=== PATIENT | female | born 1975 | race Caucasian/White ===

== ENCOUNTER 2020-06-21 20:01 | Emergency (ER) | payer BC, OTHER ==
[2020-06-21] MEDS ORDERED: METOCLOPRAMIDE HCL ORAL SOLN 10 MG/10 ML UDCUP PO ONE (20:15)
[2020-06-21] MEDS ORDERED: LIDOCAINE 2% VISCOUS SOLN 15 ML UDCUP PO ONE (20:15)
[2020-06-21] MEDS ORDERED: MAG HYDROX/AL HYDROX/SIMETH SUSP 30 ML UDCUP PO ONE (20:15)
--- NOTE | 2020-06-21 20:23 | ER Document Report ---
ED Medical Screen (RME) - General Chief Complaint: Abdominal Pain Stated Complaint: SEVERE ABDOMINAL PAIN Time Seen by Provider: 06/21/20 20:09 - HPI Notes: 06/21/20 20:17 44-year-old female with a history of hypertension, asthma, hypothyroidism, anxiety presents to the emergency room for right upper quadrant, epigastric and some left upper quadrant abdominal pain that started 24 hours ago. Reports nausea and vomiting, denies any chest pain or shortness of breath. Patient reports she still has her gallbladder. Patient denies eating anything in the last 24 hours, she cannot confirm or deny if it is worse with food. Reports RUQ pain does intermittently radiate to her back. reports her last bowel movement was this afternoon, denies melena. She did go to an urgent care they did a KUB and stated she had some stool but told her she is still having pain to go to the emergency room. Patient's last menstrual cycle was 05/05/2020, she does have regular periods, did they did confirm that she was not today but we will recheck as well. I have greeted and performed a rapid initial assessment of this patient. A comprehensive ED assessment and evaluation of the patient, analysis of test results and completion of the medical decision making process will be conducted by additional ED providers. PHYSICAL EXAMINATION: GENERAL: Well-appearing, well-nourished and in no acute distress. HEAD: Atraumatic, normocephalic. EYES: Pupils equal round extraocular movements intact, conjunctiva are normal. NECK: Normal range of motion CV: s1, s2 regular LUNGS: No respiratory distress ABD: RUQ abd pain, epigastric abd pain The patient was evaluated during a global COVID-19 pandemic and that diagnosis was suspected/considered upon their initial presentation. Their evaluation, treatment and testing was consistent with current guidelines for patients who present with complaints or symptoms and may be related to COVID-19.
--- NOTE | 2020-06-21 21:02 | RADIOLOGY REPORT (SQ) ---
EXAM DESCRIPTION: US ABDOMEN LIMITED COMPLETED DATE/TME: 06/21/2020 20:45 CLINICAL HISTORY: 44 years, Female, RUQ abd pain/epigastric abd pain EXAM:Right upper quadrant abdomen ultrasound. COMPARISON: None. FINDINGS: Pancreas: Visualized portion is unremarkable. Aorta: Visualized portion is unremarkable. IVC: Visualized portion is unremarkable. Liver: Homogenous echotexture. No mass lesion. Main portal vein: Normal hepatopetal flow. Gallbladder: Nonmobile gallstone noted in the neck of the gallbladder. Sonographic Woodall sign is reported as positive. There is also layering biliary sludge and thickening of the gallbladder wall measuring up to 5 mm. Common bile duct is normal in caliber. Right kidney: 11 cm. No hydronephrosis. No nephrolithiasis. IMPRESSION: There is a nonmobile large gallstone within the neck of the gallbladder gallbladder wall thickening and positive sonographic Woodall sign indicative of acute cholecystitis.
--- NOTE | 2020-06-21 21:07 | EKG REPORT ---
SEVERITY:- BORDERLINE ECG - SINUS RHYTHM CONSIDER ANTERIOR INFARCT : Confirmed by: uLan Heller MD 21-Jun-2020 21:07:00
[2020-06-21 22:58] LABS: APPEARANCE,URINE SLIGHTLY-CLOUDY; BILIRUBIN,URINE NEGATIVE (NEGATIVE); COLOR,URINE YELLOW; GLUCOSE, URINE NEGATIVE (NEGATIVE); KETONES,URINE NEGATIVE (NEGATIVE); LEUKOCYTE ESTERASE,URINE NEGATIVE (NEGATIVE); NITRITE,URINE NEGATIVE (NEGATIVE); PROTEIN,URINE NEGATIVE (NEGATIVE); URINE SPECIFIC GRAVITY 1.013; UROBILINOGEN,URINE NEGATIVE mg/dL (<2.0)
[2020-06-21 23:06] LABS: ABSOLUTE BASOPHILS # (AUTO) 0.1 10^3/uL (0.0-0.2); ABSOLUTE EOSINOPHILS # (AUTO) 0.1 10^3/uL (0.0-0.6); ABSOLUTE LYMPHOCYTES (AUTO) 1.1 10^3/uL (0.5-4.7); ABSOLUTE MONOCYTES (AUTO) 0.8 10^3/uL (0.1-1.4); ABSOLUTE NEUT (AUTO) 10.3 10^3/uL (1.7-8.2); BASOPHILS % (AUTO) 0.5 % (0-2); EOSINOPHILS % (AUTO) 0.7 % (0-6); HEMATOCRIT 39.5 % (36.0-47.0); HEMOGLOBIN 13.1 g/dL (12.0-15.5); LYMPHOCYTES % (AUTO) 9.2 % (13-45); MEAN CORPUSCULAR HEMOGLOBIN 27.6 pg (27.0-33.4); MEAN CORPUSCULAR HGB CONC 33.2 g/dL (32.0-36.0); MEAN CORPUSCULAR VOLUME 83 fl (80-97); MONOCYTES % (AUTO) 6.2 % (3-13); PLATELET COUNT 261 10^3/uL (150-450); RED BLOOD COUNT 4.76 10^6/uL (3.72-5.28); RED CELL DISTRIBUTION WIDTH 14.5 % (11.5-14.0); SEGMENTED NEUTROPHILS % (AUTO) 83.4 % (42-78); TOTAL CELLS COUNTED % (AUTO) 100 %; WHITE BLOOD COUNT 12.4 10^3/uL (4.0-10.5)
[2020-06-21 23:26] LABS: ALBUMIN 3.9 g/dL (3.5-5.0); ALKALINE PHOSPHATASE 70 U/L (38-126); ANION GAP 8 (5-19); ASPARTATE AMINO TRANSFERASE 25 U/L (14-36); BILIRUBIN,DIRECT 0.2 mg/dL (0.0-0.4); BILIRUBIN,TOTAL 0.7 mg/dL (0.2-1.3); BLOOD UREA NITROGEN 10 mg/dL (7-20); CALCIUM 9.5 mg/dL (8.4-10.2); CARBON DIOXIDE 23 mmol/L (22-30); CHLORIDE 100 mmol/L (98-107); GLUCOSE 132 mg/dL (75-110); POTASSIUM 4.2 mmol/L (3.6-5.0)
[2020-06-21] MEDS ORDERED: RINGERS SOLUTION,LACTATED 1,000 ML IV ONE (23:38)
[2020-06-21] MEDS ORDERED: FENTANYL CITRATE INJ/PF 100 MCG/2 ML AMPUL IV ONE (23:38)
[2020-06-21] MEDS ORDERED: ONDANSETRON HCL INJ/PF 4 MG/2 ML SDV IV ONE (23:38)
--- NOTE | 2020-06-21 23:39 | ER Document Report ---
Entered by KINGSLEY HOANG SCRIBE 06/21/20 [id number] Acting as scribe for:CHRISTIAN GEORGE DO ED General - General Chief Complaint: Epigastric Pain Stated Complaint: SEVERE ABDOMINAL PAIN Time Seen by Provider: 06/21/20 20:09 Mode of Arrival: Ambulatory Information source: Patient Notes: This 44-year-old female patient presents to emergency department today with complaints of upper abdominal pain for the last 24 hours. Patient was seen at an urgent care for this and was started on hyoscyamine which she states has not helped. Her LMP was on 05/05 and she has irregular periods, she is not . She denies any known COVID-19 exposure. - Related Data Allergies/Adverse Reactions: amoxicillin Allergy (Verified 06/21/20 20:22) Home Medications: levsin, levothyrozxyine, advair,buspar, lisinopril, mobic, flexeril,. anxiety med. Past Medical History - General Information source: Patient - Social History Smoking Status: Never Smoker Cigarette use (# per day): No Frequency of alcohol use: None Drug Abuse: None Lives with: Family Family History: Reviewed & Not Pertinent - Past Medical History Cardiac Medical History: Reports: Hx Hypertension Pulmonary Medical History: Reports: Hx Asthma Surgical Hx: Negative Review of Systems - Review of Systems Constitutional: No symptoms reported EENT: No symptoms reported Cardiovascular: No symptoms reported Respiratory: No symptoms reported Gastrointestinal: See HPI, Abdominal pain Genitourinary: No symptoms reported Female Genitourinary: See HPI, Last menstrual period - 05/02, Irregular period Musculoskeletal: No symptoms reported Skin: No symptoms reported Hematologic/Lymphatic: No symptoms reported Neurological/Psychological: No symptoms reported -: Yes All other systems reviewed and negative Physical Exam - Vital signs Vitals: Temp Pulse Resp BP Pulse Ox 98.1 F 96 16 162/101 H 98 06/21/20 20:19 06/21/20 20:19 06/21/20 20:19 06/21/20 20:19 06/21/20 20:19 - Notes Notes: Physical Exam: General: Alert, appears well. HEENT: Normocephalic. Atraumatic. PERRL. Extraocular movements intact. Oropharynx clear. Neck: Supple. Non-tender. Respiratory: No respiratory distress. Clear and equal breath sounds bilaterally. Cardiovascular: Regular rate and rhythm. Abdominal: Obese. RUQ and epigastric tenderness to palpation. No distension. Normal Bowel Sounds. Back: No gross abnormalities. Extremities: Moves all four extremities. Upper extremities: Normal inspection. Normal ROM. Lower extremities: Normal inspection. No edema. Normal ROM. Neurological: Normal cognition. AAOx4. Normal speech. Psychological: Normal affect. Normal Mood. Skin: Warm. Dry. Normal color. Course - Re-evaluation Re-evalutation: 06/21/20 23:37 MDM 44 year old female with acute cholycystitis. I have discussed with Dr. Vann and he has graciously agreed to see and evaluate for admission. - Vital Signs Vital signs: Temp Pulse Resp BP Pulse Ox 98.1 F 96 16 162/101 H 98 06/21/20 20:19 06/21/20 20:19 06/21/20 20:19 06/21/20 20:19 06/21/20 20:19 - Laboratory Results Result Diagrams: 06/21/20 22:20 06/21/20 22:20 Laboratory Results Interpreted: 06/21/20 06/21/20 22:20 22:20 WBC 12.4 H RDW 14.5 H Lymph % (Auto) 9.2 L Absolute Neuts (auto) 10.3 H Seg Neutrophils % 83.4 H Sodium 131.4 L Glucose 132 H Critical Laboratory Results Reviewed: No Critical Results - Radiology Results Critical Radiology Results Reviewed: No Critical Results Discharge - Discharge Clinical Impression: Biliary colic Condition: Stable Disposition: HOME, SELF-CARE Instructions: Abdominal Pain ([facility]), Antinausea Medication ([facility]), Oral Narcotic Medication ([facility]) Additional Instructions: See you doctor in follow up. Call this morning. Clear liquids for 24 hours. Rest. Please return here for increased pain, persistent vomiting, other problems or other concerns. Do not drive climb or operate machinery while taking the pain medicine. I personally performed the services described in the documentation, reviewed and edited the documentation which was dictated to the scribe in my presence, and it accurately records my words and actions.
[2020-06-22] MEDS ORDERED: HYDROCODONE/ACETAMINOPHEN 5-325 MG (6 TAB/ER DISP) PO PRN (00:05)
--- NOTE | 2020-06-22 00:13 | PDOC CONSULTATION ---
Consultation Consult Date: 06/22/20 Attending physician:: CHRISTIAN GEORGE Provider Consulted: SHAUNA MORRIS Consult reason:: biliary cholic History of Present Illness Patient complains of: ruq pain History of Present Illness: ANGELINA JERNIGAN is a 44 year old female Past Medical History Cardiac Medical History: Reports: Hypertension Pulmonary Medical History: Reports: Asthma Past Surgical History Past Surgical History: Reports: None Social History Smoking Status: Never Smoker Family History Parental Family History Reviewed: No Children Family History Reviewed: NA Sibling(s) Family History Reviewed.: NA Medication/Allergy Allergies/Adverse Reactions: amoxicillin Allergy (Verified 06/21/20 20:22) Review of Systems Constitutional: PRESENT: anorexia Eyes: ABSENT: as per HPI, visual disturbances, other Ears: ABSENT: as per HPI, hearing changes, other Nose, Mouth, and Throat: ABSENT: as per HPI, headache(s), mouth pain, sore throat, vertigo, other Breasts: ABSENT: as per HPI, other Cardiovascular: ABSENT: as per HPI, chest pain, dyspnea on exertion, edema, orthropnea, palpitations, other Respiratory: ABSENT: as per HPI, cough, dyspnea, hemoptysis, sputum, other Gastrointestinal: ABSENT: as per HPI, abdominal pain, bloating, coffee ground emesis, constipation, diarrhea, dysphagia, heartburn, hematemesis, hematochezia, melena, nausea, vomiting, other Genitourinary: ABSENT: as per HPI, difficulty urinating, dysuria, hematuria, nocturia, other Musculoskeletal: ABSENT: as per HPI, back pain, deformity, joint swelling, muscle weakness, other Integumentary: ABSENT: as per HPI, diaphoresis, erythema, lesions, pruritus, r abby, wounds, other Neurological: ABSENT: as per HPI, abnormal gait, abnormal movements, abnormal speech, confusion, convulsions, dizziness, focal weakness, frequent falls, lack of coordination, memory loss, numbness, paresthesias, restless legs, syncope, tingling, tremor(s), vertigo, weakness, other Psychiatric: ABSENT: as per HPI, anxiety, depression, hallucinations, homidical ideation, suicidal ideation, other Endocrine: ABSENT: as per HPI, cold intolerance, flushing, heat intolerance, menstrual abnormalities, polydipsia, polyphagia, polyuria, other Hematologic/Lymphatic: ABSENT: as per HPI, easy bleeding, easy bruising, lymphadenopathy, other Allergic/Immunologic: ABSENT: as per HPI, seasonal rhinorrhea, other Physical Exam Vital Signs: Temp Pulse Resp BP Pulse Ox 98.1 F 96 16 162/101 H 98 06/21/20 20:19 06/21/20 20:19 06/21/20 20:19 06/21/20 20:19 06/21/20 20:19 Intake & Output 06/20/20 06/21/20 06/22/20 06:59 06:59 06:59 Weight 116.9 kg General appearance: PRESENT: morbidly obese Head exam: PRESENT: atraumatic Eye exam: PRESENT: EOMI Ear exam: PRESENT: normal external ear exam Mouth exam: PRESENT: moist Neck exam: PRESENT: full ROM Respiratory exam: PRESENT: clear to auscultation maurice Cardiovascular exam: PRESENT: RRR Pulses: PRESENT: normal radial pulses, normal femoral pulses Vascular exam: PRESENT: normal capillary refill Breast: PRESENT: Normal GI/Abdominal exam: PRESENT: soft Rectal exam: PRESENT: deferred Extremities exam: PRESENT: full ROM Musculoskeletal exam: PRESENT: full ROM Neurological exam: PRESENT: alert, awake, oriented to person, oriented to place Psychiatric exam: PRESENT: appropriate affect Skin exam: PRESENT: dry Results Laboratory Results: 06/21/20 22:20 06/21/20 22:20 06/21/20 06/21/20 06/21/20 22:20 22:20 22:20 WBC 12.4 H RBC 4.76 Hgb 13.1 Hct 39.5 MCV 83 MCH 27.6 MCHC 33.2 RDW 14.5 H Plt Count 261 Seg Neutrophils % 83.4 H Sodium 131.4 L Potassium 4.2 Chloride 100 Carbon Dioxide 23 Anion Gap 8 BUN 10 Creatinine 0.66 Est GFR ( Amer) > 60 Glucose 132 H Calcium 9.5 Total Bilirubin 0.7 AST 25 Alkaline Phosphatase 70 Total Protein 7.0 Albumin 3.9 Lipase 55.9 Urine Color YELLOW Urine Appearance SLIGHTLY-CLOUDY Urine pH 5.0 Ur Specific [place] 1.013 Urine Protein NEGATIVE Urine Glucose (UA) NEGATIVE Urine Ketones NEGATIVE Urine Blood NEGATIVE Urine Nitrite NEGATIVE Ur Leukocyte Esterase NEGATIVE Urine WBC (Auto) 1 Urine RBC (Auto) 0 Impressions: Abdomen Ultrasound 06/21/20 20:15 IMPRESSION: There is a nonmobile large gallstone within the neck of the gallbladder gallbladder wall thickening and positive sonographic Woodall sign indicative of acute cholecystitis. Assessment & Plan - Diagnosis (1) Biliary colic Is this a current diagnosis for this admission?: Yes - Plan Summary Plan Summary: impression biliary cholic pt offered admission and scheduling for lap hugo however would rather be discharged and be scheduled as an outpt.
[2020-06-22] MEDS ORDERED: ONDANSETRON ODT 4 MG TAB (6 TAB/ER DISP) PO PRN (00:33)
[2020-06-22 01:10] VITALS: BP 151/84
== END 2020-06-22 01:10 | disposition home or self-care (01) ==
LOC: ER 20:01 → EH 06-22 00:04 → UNDOADMOB 06-22 00:04 → ER 06-22 01:10
DX: K80.62 Calculus of gallbladder and bile duct with acute cholecystitis without obstruction (principal); R10.11 Right upper quadrant pain; R10.811 Right upper quadrant abdominal tenderness; R10.816 Epigastric abdominal tenderness; R63.0 Anorexia; N92.6 Irregular menstruation, unspecified; E66.01 Morbid (severe) obesity due to excess calories; I10 Essential (primary) hypertension; J45.909 Unspecified asthma, uncomplicated; Z79.899 Other long term (current) drug therapy; Z79.51 Long term (current) use of inhaled steroids; Z88.0 Allergy status to penicillin
CPT/HCPCS: 93005; 99285; 96361; 96374; 96375; 36415; 83690; 85025; 81025; 80053; 81001; 76705; 93010; J3010; J3490; J2405; J7120